=== PATIENT | male | born 1980 | race Caucasian/White ===

== ENCOUNTER → 2016-12-05 | Outpatient (CLI) | payer BC ==
--- NOTE | 2016-12-05 09:24 | RAD ---
CT scan of the abdomen and pelvis without contrast 12/05/2016 Clinical history: Severe right flank pain since earlier today. Technique: Unenhanced, contiguous, 3 mm axial sections were obtained through the abdomen and pelvis. One or more of the following individualized dose reduction techniques were utilized for this study: 1. Automated exposure control. 2. Adjustment of the mA and/or kV according to patient size. 3. Use of iterative reconstruction technique. Findings: Images through the lung bases demonstrate minimal dependent subsegmental atelectasis bilaterally. The liver, spleen, pancreas, and adrenal glands are within normal limits. Multiple nonobstructing calculi are seen scattered throughout both kidneys. These measure 1 mm to 4 mm in size. No ureteral calculus is seen. There is no evidence of obstruction of either collecting system. The abdominal aorta tapers normally. The gallbladder is slightly contracted. No free fluid or free air is seen within the abdomen. There is no evidence of bowel obstruction. The appendix is not visualized. No inflammatory changes are seen surrounding the cecum. Images through the pelvis demonstrate the urinary bladder to be slightly contracted. No distal ureteral calculus is seen. A punctate calcification is seen within the right pelvis consistent with a phlebolith. No free fluid is seen. Minimal S shaped curvature of the thoracolumbar spine is noted. Bilateral spondylolysis is seen at L5. No significant spondylolisthesis is seen. Impression 1. Bilateral nonobstructing renal calculi. 2. No ureteral calculus is seen. There is no evidence of obstruction of either collecting system. 3. No acute abnormality is seen.
== END | disposition home or self-care (01) ==
LOC: CT 08:49
PROVIDERS: ATTEND Physician Assistant
DX: N20.0 Calculus of kidney (principal); M54.5 Low back pain; R31.29 Other microscopic hematuria
CPT/HCPCS: 74176